=== PATIENT | male | born 1960 | race Caucasian/White ===

== ENCOUNTER 2025-06-04 10:31 | Emergency (ER) | payer SELFPAY ==
[2025-06-04 10:44] VITALS: BP 160/114
--- NOTE | 2025-06-04 11:45 | ED.GENMED ---
History of Present Illness
<BLUE Perez - Last Filed: 06/04/25 16:09>
General
Chief Complaint: Throat Problem
Source: patient
Exam Limitations: none
Time Seen by Provider: 06/04/25 11:24
History of Present Illness
History of Present Illness:
64-year-old male presents to the ER for evaluation of sore throat. Patient started out with a sore throat 1 week ago. It gradually got worse. Patient had a very hard time swallowing and had subjective fevers a week ago. On patient saw
his PCP and was started on Augmentin and prednisone. He has had worsening sore throat despite medications. He has been able to swallow his secretions but still complains of pain and swelling to his left glans. He does feel radiation to his ear.
He did take a dose of Augmentin today and 20 mg of prednisone. He has not had a fever in the past several days. He denies any shortness of breath. Patient was concerned that he was having an allergic reaction to the Augmentin because symptoms
were getting worse and therefore he stopped Augmentin on Wednesday.
Past History
<BLUE Perez - Last Filed: 06/04/25 16:09>
Past History
ED Past Medical History: Other
Social History
Tobacco: Non-smoker
Alcohol: None
Personal:
Employment: Employed
Family History
Family History: Negative Diabetes, Hypertension or CAD
Phy Exam
<BLUE Perez - Last Filed: 06/04/25 16:09>
General Physical Exam
General Presentation: no apparent distress
General age: appears stated age
General Skin: warm and dry
General Habitus: normal
General Mental: alert
General Hydration: appears well hydrated
ENT Exam
ENT Exam: other (Pharynx is red with obvious fullness and swelling to the right posterior peritonsillar region uvula seems to be deviated to the right , no drooling , tolerating secretions well )
Neurological Exam
Neurological Exam: alert and oriented x3
Musculoskeletal Exam
Musculoskeletal Exam: full ROM
Skin Exam
Skin Exam: normal color and warm/dry
Psychiatric Exam
Psychiatric Exam: normal mood/affect
Course
<BLUE Perez - Last Filed: 06/04/25 16:09>
Orders/Labs/Results
Orders:
Orders
06/04/25 11:46
CT Neck With Iv Contrast Urgent
Comment:
Reason For Exam: sore throat concern for peritonsillar abscess
IV Insert/Care/Rem.- Treatment PRN
0.9% Sodium Chloride 1000 ml [Nss] 1,000 ml IV BOLUS
Dexamethasone Sod Phosphate [Decadron] 10 mg IV NOW STA
06/04/25 11:53
Complete Blood Count/With Diff Urgent
Comprehensive Metabolic Panel Urgent
Rapid Strep Group A Urgent
STEPHANIE Source: Throat/Pharynx
Specimen Description:
Date Specimen was Collected: 06/04/25
Time Specimen was Collected: 11:48
06/04/25 13:02
Ketorolac [Toradol] 15 mg IV NOW STA
06/04/25 14:32
Morphine Sulfate 4 mg IV NOW STA
06/04/25 14:33
Ampicillin/Sulbactam 3 G [Unasyn] 3 gm 0.9% Sodium Chloride 100 ml [Nss] 100 ml IV NOW
06/04/25 14:37
Ampicillin/Sulbactam 3 G [Unasyn] 3 gm 0.9% Sodium Chloride 100 ml [Nss] 100 ml IV NOW
06/04/25 15:32
Throat Culture [Throat Culture, Comprehensive] Urgent
STEPHANIE Source: Tonsil
Specimen Description:
Date Specimen was Collected: 06/04/25
Time Specimen was Collected: 15:30
Comment: left throat abscess
06/04/25 15:45
Acetaminophen [Tylenol] 1,000 mg PO NOW STA
Abnormal Lab Results
06/04/25
11:53
WBC 12.1 H 10^3/uL
(4.8-10.8)
MCV 94.9 H fL
(80.0-94.0)
MCH 32.0 H pg
(27.0-31.0)
Abs Immat Gran (auto) 0.1 H 10^3/uL
(0-0.05)
Absolute Neuts (auto) 10.2 H 10^3/uL
(1.4-6.5)
Absolute Lymphs (auto) 0.9 L 10^3/uL
(1.2-3.4)
Absolute Monos (auto) 0.9 H 10^3/uL
(0.1-0.6)
Neutrophils % 84.6 H %
(42.2-75.2)
Lymphocytes % 7.4 L %
(20.5-51.1)
Glucose 119 H mg/dl
(70-99)
06/04/25 11:53
06/04/25 11:53
Vital Signs
Initial and Last Documented VS:
Initial Vital Signs
Temp Pulse Resp BP Pulse Ox
97.8 F 87 16 160/114 100
06/04/25 10:44 06/04/25 10:44 06/04/25 10:44 06/04/25 10:44 06/04/25 10:44
Last Documented Vital Signs
Temp Pulse Resp BP Pulse Ox
97.8 F 74 20 157/95 98
06/04/25 10:44 06/04/25 13:48 06/04/25 13:48 06/04/25 13:48 06/04/25 13:50
Cable Braider consulted with Physician
Cable Braider consulted with physician?: Yes
Name of Physician Consulted: Gibran
<Jt Leary, DO - Last Filed: 06/04/25 15:13>
Orders/Labs/Results
Orders:
Orders
06/04/25 11:46
CT Neck With Iv Contrast Urgent
Comment:
Reason For Exam: sore throat concern for peritonsillar abscess
IV Insert/Care/Rem.- Treatment PRN
0.9% Sodium Chloride 1000 ml [Nss] 1,000 ml IV BOLUS
Dexamethasone Sod Phosphate [Decadron] 10 mg IV NOW STA
06/04/25 11:53
Complete Blood Count/With Diff Urgent
Comprehensive Metabolic Panel Urgent
Rapid Strep Group A Urgent
STEPHANIE Source: Throat/Pharynx
Specimen Description:
Date Specimen was Collected: 06/04/25
Time Specimen was Collected: 11:48
06/04/25 13:02
Ketorolac [Toradol] 15 mg IV NOW STA
06/04/25 14:32
Morphine Sulfate 4 mg IV NOW STA
06/04/25 14:33
Ampicillin/Sulbactam 3 G [Unasyn] 3 gm 0.9% Sodium Chloride 100 ml [Nss] 100 ml IV NOW
06/04/25 14:37
Ampicillin/Sulbactam 3 G [Unasyn] 3 gm 0.9% Sodium Chloride 100 ml [Nss] 100 ml IV NOW
06/04/25 15:32
Throat Culture [Throat Culture, Comprehensive] Urgent
STEPHANIE Source: Tonsil
Specimen Description:
Date Specimen was Collected: 06/04/25
Time Specimen was Collected: 15:30
Comment: left throat abscess
06/04/25 15:45
Acetaminophen [Tylenol] 1,000 mg PO NOW STA
Abnormal Lab Results
06/04/25
11:53
WBC 12.1 H 10^3/uL
(4.8-10.8)
MCV 94.9 H fL
(80.0-94.0)
MCH 32.0 H pg
(27.0-31.0)
Abs Immat Gran (auto) 0.1 H 10^3/uL
(0-0.05)
Absolute Neuts (auto) 10.2 H 10^3/uL
(1.4-6.5)
Absolute Lymphs (auto) 0.9 L 10^3/uL
(1.2-3.4)
Absolute Monos (auto) 0.9 H 10^3/uL
(0.1-0.6)
Neutrophils % 84.6 H %
(42.2-75.2)
Lymphocytes % 7.4 L %
(20.5-51.1)
Glucose 119 H mg/dl
(70-99)
06/04/25 11:53
06/04/25 11:53
Vital Signs
Initial and Last Documented VS:
Initial Vital Signs
Temp Pulse Resp BP Pulse Ox
97.8 F 87 16 160/114 100
06/04/25 10:44 06/04/25 10:44 06/04/25 10:44 06/04/25 10:44 06/04/25 10:44
Last Documented Vital Signs
Temp Pulse Resp BP Pulse Ox
97.8 F 74 20 157/95 98
06/04/25 10:44 06/04/25 13:48 06/04/25 13:48 06/04/25 13:48 06/04/25 13:50
<BLUE Perez - Last Filed: 06/04/25 16:09>
MDM/Problems Addressed
Differential Diagnosis Includes:
Not limited to strep throat, pharyngitis, peritonsillar abscess
MDM/Problems Addressed:
61-year-old male presents with worsening sore throat for the past 1 week . He was prescribed Augmentin on along with prednisone but stopped taking Augmentin on Wednesday concerned that his symptoms were getting worse.
On exam he has obvious swelling to the posterior pharynx with redness and fullness. Uvula gravitating to the right. He is tolerating secretions well. Lungs clear not hypoxic no shortness of breath.
Will order labs CAT scan of the neck with contrast all fluids and Decadron.
CAT scan does show a peritonsillar abscess. Case reviewed with ED physician case discussed with on-call ENT Dr Juarez who drained abscess at bedside. He does recommend continuing Augmentin for the next 2 weeks. Patient has 1 week supply left I
did call another prescription of Augmentin to patient's pharmacy along with Medrol Dosepak as recommended by ENT. I did review with patient that his symptoms were not consistent with an allergic reaction.
He is to follow-up as recommended with ENT and return if any worsening of symptoms
<BLUE Perez - Last Filed: 06/04/25 16:09>
*Radiology
Radiology exam reviewed: radiology read reviewed
*Pulse Oximetry
SaO2: 100
Oxygen Mode of Delivery: Room air
Patient hypoxic: no
*Critical Care Note
Total Time (30-74mins, 75-104mins- exclusive of procedures): Not Applicable
<BLUE Perez - Last Filed: 06/04/25 16:09>
Patient Management
Discussion with other providers: Legal Analyst
Escalation/DeEscalation of care consider admission/obs:
ENT Dr Juarez
ED Attending Note
<BLUE Perez - Last Filed: 06/04/25 16:09>
-
Portions of this chart may have been created with voice recognition software.� Occasional wrong word or��sound alike� substitutions may have occurred due to the inherent limitations of voice recognition software.
<Jt Leary DO - Last Filed: 06/04/25 15:13>
ED Attending Note
Patient seen and examined by attending physician: Yes
ED Attending Note:
I have reviewed and agree with history treatment plan by BLUE Donohue. My exam revealed 64-year-old male with left peritonsillar abscess. Patient given Unasyn and Decadron. ENT Dr. Juarez present in ED to perform incision and drainage.
Discharge Plan
Departure
Patient Disposition: Home (Routine Discharge)
Date of Disposition: 06/04/25
Time of Disposition: 15:46
Patient with high blood pressure during this ER visit?: Yes
Condition: Fair
Covid-19: Not Applicable
Discharge Problem:
Abscess, peritonsillar, Drainage of peritonsillar abscess performed
Instructions: Peritonsillar Abscess, Adult (DC), Peritonsillar abscess, BLOOD PRESSURE
Prescriptions:
New
amoxicillin-pot clavulanate 875-125 mg tablet
1 tab PO BID Qty: 14 0RF
methylprednisolone [Medrol (Haroon)] 4 mg tablets,dose pack
See Rx Instructions .ROUTE .COMPLEX Qty: 21 0RF
Rx Instructions:
orally per package directions
No Action
prednisone 5 mg Tablet
5 mg PO DIRECTED
Rx Instructions:
take 3 tablets for 2 day then 2 tablets for 2 day then 1 tablet for 2 days until finished for total of 6 days
amoxicillin-pot clavulanate [Augmentin] 875-125 mg Tablet
1 tab PO BID
Rx Instructions:
for 10 days starting 05.31.25
Referrals:
Keven Juarez, DO [Active, ENT]
NONE,* [Family Provider, Internal Medicine]
Activity Restrictions/Additional Instructions:
Continue Augmentin for next 2 weeks. Finish out your current prescription which has 1 week supply and a new prescription will be sent to your pharmacy for an additional week. In addition a prescription for Medrol Dosepak will also be sent to your
pharmacy take as directed. Follow-up with ENT as discussed return if any worsening of symptoms including increasing pain fevers shortness of breath or any further concerns
Interventions
Interventions:
*Risk Screen - Suicide Last Done: 06/04/25 10:44
*General Assessment Last Done: 06/04/25 10:44
*Neglect/Abuse Screening Last Done: 06/04/25 10:44
*ED COVID-19 Vaccine History Last Done: 06/04/25 10:44
*ED Influenza Vaccine History Last Done: 06/04/25 10:44
ED-EENT Assessment Last Done: 06/04/25 11:39
ED- Pulmonary Assessment Last Done: 06/04/25 13:50
Discharge Date and Time
Print Language: MALAY
[2025-06-04] MEDS: NSS 1000 IV (11:51)
[2025-06-04] MEDS: DECADRON 10 MG IV (11:52)
[2025-06-04 12:02] LABS: Hematocrit 46.6 % (39.0-52.0); Hemoglobin 15.7 g/dL (13.0-18.0); Mean Corp Hgb Conc. 33.7 g/dL (33.0-37.0); Mean Corpuscular Volume 94.9 fL (80.0-94.0); Nucleated Red Blood Cells % 0 % (-); Platelet Count 248 10^3/uL (130-400); Red Cell Dist. Width 13.3 % (11.5-14.5)
[2025-06-04 12:38] LABS: ALT (SGPT) 22 U/L (0-50); AST (SGOT) 25 U/L (17-59); Albumin 4.5 g/dl (3.5-5.0); Alkaline Phosphatase 106 U/L (38-126); Blood Urea Nitrogen 18 mg/dl (9-20); Calcium 9.3 mg/dl (8.4-10.2); Carbon Dioxide 25 mmol/L (22-30); Chloride 105 mmol/L (98-107); Glucose 119 mg/dl (70-99); Potassium 4.0 mmol/L (3.5-5.1); Sodium 135 mmol/L (135-145); Total Protein 7.8 g/dl (6.3-8.2); eGFR > 60.00
[2025-06-04] MEDS: TORADOL 15 MG IV (13:09)
[2025-06-04 13:48] VITALS: BP 157/95
[2025-06-04 13:49] VITALS: BMI 27.2
[2025-06-04] MEDS: MORPHINE SULFATE 4 MG IV (14:40)
[2025-06-04] MEDS: UNASYN IV (15:36)
--- NOTE | 2025-06-04 16:02 | W.CON.OTO ---
Addendum entered and electronically signed by Keven Juarez DO 06/04/25 16:23:
Addendum to diagnoses, 64yo man with acute pharyngitis, left peritonsillar abscess.
Original Note:
Otolaryngology Consult
Consult
Date/Time Consultation Requested: 06/04/2025 1414
Date/Time Consultation Performed: 06/04/2025 1500
Requesting Provider: Dr. Leary
Performing Provider: Dr. Juarez
Reason for Consultation: Left peritonsillar abscess
Chief Complaint
Sore throat, left peritonsillar abscess
History of Present Illness
This is a 64-year-old man with seasonal allergies and chronic sinusitis status post endoscopic sinus surgery reportedly in 2011 who presents to the [facility] emergency department with 6 days of progressively worsening left-sided sore throat
with dysphagia and odynophagia. Has muffled voice and difficulty swallowing. He was started on Augmentin and 30 mg prednisone by his PCP on 05/31 and symptoms were held today but then acutely worsened on 06/02. No difficulty breathing but
symptoms have not gotten better. He presented to the ER on 06/[address] soft tissue neck with contrast which demonstrated a 2 x 2 cm left-sided peritonsillar abscess. ENT was consulted for further evaluation.
At the time of evaluation patient resting comfortably in bed. He has never had this happen before. No prior head or neck surgery other than sinus surgery. He feels about the same since arriving to the ER.
Medical History
Additional Past Medical History:
Seasonal allergies
Additional Past Surgical History:
endoscopic sinus surgery
Patient Allergies:
Allergies
Allergy/AdvReac Type Severity Reaction Status Date / Time
codeine (Codeine) Allergy Nausea Verified 06/04/25 10:50
Seasonal, cats Allergy Sneezing, Uncoded 06/04/25 10:50
runny nose
Home Medications / Current Medications:
�Medication �Instructions �Recorded
amoxicillin 875 mg-potassium 1 tab PO BID #14 tabs 06/04/25
clavulanate 125 mg tablet
amoxicillin 875 mg-potassium 1 tab PO BID Infection 06/04/25
clavulanate 125 mg tablet
methylprednisolone 4 mg tablets in See Rx Instructions PO .COMPLEX 06/04/25
a dose pack (Medrol (Haroon)) #21 ea
prednisone 5 mg tablet 5 mg PO DIRECTED 06/04/25
Physical Exam
Vitals / Labs:
Vital Signs
Temp 97.8 F 06/04/25 10:44
Temp route: Oral 06/04/25 10:44
Pulse 74 06/04/25 13:48
Resp Rate 20 06/04/25 13:48
Blood pressure 157/95 06/04/25 13:48
Blood pressure extremity used: Right upper arm 06/04/25 13:48
Position: Sitting 06/04/25 13:48
SaO2 98 06/04/25 13:50
Oxygen Mode of Delivery Room air 06/04/25 13:50
Can the patient verbally communicate their pain? Yes 06/04/25 14:40
Pain scale ratin 06/04/25 14:40
Actual Weight 86 kg 06/04/25 13:49
Body Mass Index (BMI) 27.2 06/04/25 13:49
Lab Results
06/04/25 11:53
06/04/25 11:53
Exam:
Otolaryngology specialty specific physical exam: No acute distress, resting comfortably in stretcher. Mild muffled voice. No substantial trismus. Uvula deviated right. Marked effacement of the left soft palate with ecchymosis and edema and
fullness. Difficulty visualizing posterior pharyngeal wall.
Procedure Note
Procedure: Incision and drainage left peritonsillar abscess
Indications: Left peritonsillar abscess refractory to medical therapy
Consent: Verbal
Details of procedure: After verbal consent and adequate time for questions and discussion, we began the procedure. 3 cc of 1% lidocaine with epinephrine 1 100,000 was used to infiltrate the left soft palate region. After adequate time for
anesthesia, an 18-gauge sharp needle was used to needle aspirate and incise and drain the left peritonsillar abscess. Pus was sent for culture. The oropharynx was rinsed and suctioned out. The left soft palate and peritonsillar regions
decompressed adequately. Patient tolerated procedure well and began to feel better.
Assessment / Plan
64-year-old man with left peritonsillar abscess.
He is now status post incision and drainage and beginning to feel better.
Recommend oral abx for a total of 14 days of therapy. He has some concerns about restarting augmentin due to concerns for allergic reaction. His symptoms sounded more like an antibiotic failure vs not enough time on antibiotics. We will plan to
continue augmentin with a low threshold to change to clindamycin based on lack of response or new culture data
Recommend Medrol Dosepak x 1
Diet as tolerated Home
Recommend outpatient follow-up within 10 to 14 days of ER visit to ensure resolution. We discussed close return precautions in the event symptoms recur.
Data Reviewed
Radiology: Image Personally Visualized and interpreted (2 x 2 cm hypodensity with rim-enhancing capsule in the left peritonsillar space, likely consistent with left peritonsillar abscess) and Discussed with Patient
CT Scan: Image Personally Visualized and interpreted (2 x 2 cm hypodensity with rim-enhancing capsule in the left peritonsillar space, likely consistent with left peritonsillar abscess)
Lab Data: Labs Reviewed by me (WBC 12.1 suggesting acute infection and Hgb 15.7 suggesting no anemia and stable for bedside procedure)
[2025-06-04 16:39] VITALS: BP 145/88
== END 2025-06-04 16:40 | disposition home or self-care (01) ==
LOC: EMR 10:31
PROVIDERS: Nurse Practitioner; EMERGENCY PHYSICIAN Emergency Medicine
DX: J36 Peritonsillar abscess (principal); Z88.0 Allergy status to penicillin; Z88.5 Allergy status to narcotic agent; Z88.8 Allergy status to other drugs, medicaments and biological substances
CPT/HCPCS: 99284; 42700; 96365; 96375; 70491; 80053; 85025; 87070; 87077; 87147; 87880; Q9967